=== PATIENT | female | born 1995 | race Hispanic/Latino ===

== ENCOUNTER 2023-05-15 11:31 | Emergency (ER) | payer MEDICAID ==
[~2023-05-15] VITALS: Ht 152.4 cm; Wt 54.4 kg
[~2023-05-15 11:31] MED LIST: MACR100 PO
[2023-05-15 12:23] VITALS: BP 135/76; PULSE 80; RESP 16; O2SAT 100
[2023-05-15] MEDS ORDERED: CYCL10TA16 PO (14:50)
[2023-05-15] MEDS ORDERED: IBUP-2070 PO (14:50)
[2023-05-15] MEDS ORDERED: KETOROLAC 30MG VIAL (30MG/ML) IM ONE (15:00)
[2023-05-15] MEDS ORDERED: CYCLOBENZAPRINE HCL 10 MG TABLET PO ONE (15:00)
== END 2023-05-15 15:17 | disposition home or self-care (01) ==
LOC: EDH 11:31
DX: M43.6 Torticollis (principal); Z90.49 Acquired absence of other specified parts of digestive tract; Z98.890 Other specified postprocedural states
CPT/HCPCS: 99283; 96372; J1885

== ENCOUNTER 2023-07-04 13:34 | Emergency (ER) | payer MEDICAID ==
[~2023-07-04] VITALS: Ht 152.4 cm; Wt 52.2 kg
[~2023-07-04 13:34] MED LIST changes: +CYCL10TA16 PO; +IBUP-2070 PO
[2023-07-04 13:35] VITALS: BP 129/72; PULSE 105; RESP 16
[2023-07-04] MEDS: AMOX/CLAV 875/125MG TAB PO ONE (16:02)
[2023-07-04] MEDS: IBUPROFEN 400 MG TABLET PO ONE (16:03)
[2023-07-04] MEDS: DIPH,PERTUSS(ACELL),TET VAC/PF 0.5 ML VIAL IM ONE (16:04)
[2023-07-04] MEDS ORDERED: MUPI22OI2 TP (16:41)
[2023-07-04] MEDS ORDERED: AMOX875T2 PO (16:41)
== END 2023-07-04 17:28 | disposition home or self-care (01) ==
LOC: EDH 13:34
DX: S61.251A Open bite of left index finger without damage to nail, initial encounter (principal); Z90.49 Acquired absence of other specified parts of digestive tract; Z98.51 Tubal ligation status; W54.0XXA Bitten by dog, initial encounter; Y93.89 Activity, other specified; Y92.89 Other specified places as the place of occurrence of the external cause; Y99.8 Other external cause status
CPT/HCPCS: 73140; 90471; 90715